=== PATIENT | male | born 1970 | race Caucasian/White ===

== ENCOUNTER 2021-07-17 13:42 | Emergency (ER) | payer MEDICAID, SELFPAY ==
[2021-07-17] VITALS (7 sets, daily range): BP systolic 109–124; BP diastolic 76–84; PULSE 60–69; RESP 15–17; TEMP 36.6–36.7; O2SAT 96–99; BMI 23.6
--- NOTE | 2021-07-17 13:43 | HMH.EDGENADL ---
ED Disposition Clinical Impression: Sciatica Disposition: Home, Self-Care Condition on Discharge: Fair Instructions: Sciatica (Alternative Therapy), Sciatica - Critical Care Critical Care Time: No Attestation: On , the high probability of a clinically significant, sudden or life threatening deterioration of the following system(s) required my full and direct attention, intervention and personal management. The time I documented below is in addition to time spent performing reported procedures but includes the following listed in this critical care notation. Medical Decision Making - Medical Records Medical records reviewed: Yes: I reviewed the patient's medical records. - Mansoor Inquiry Pt receiving controlled substance: No Vital Signs: 07/17/21 13:38 07/17/21 15:03 07/17/21 15:30 Temperature 97.8 F Temperature Source Oral Pulse Rate 61 62 Pulse Rate [Right Radial] 69 Respiratory Rate 15 Blood Pressure 109/76 L 119/84 Blood Pressure [Right Arm] 124/76 Blood Pressure Mean 86 95 Blood Pressure Mean [Right Arm] 92 Blood Pressure Source [Right Arm] Automatic Cuff Blood Pressure Position [Right Arm] Sitting 02 Sat by Pulse Oximetry 96 97 98 Oxygen Delivery Method Room Air Room Air 07/17/21 16:00 Temperature Temperature Source Pulse Rate Pulse Rate [Right Radial] Respiratory Rate Blood Pressure 112/79 Blood Pressure [Right Arm] Blood Pressure Mean 87 Blood Pressure Mean [Right Arm] Blood Pressure Source [Right Arm] Blood Pressure Position [Right Arm] 02 Sat by Pulse Oximetry 99 Oxygen Delivery Method Orders (Tests/Meds): ED MEDICATIONS Discontinued Medications Generic Name Dose Route Start Last Admin Trade Name Freq PRN Reason Stop Dose Admin Hydrocodone Bitart/Acetaminophen 1 tab 07/17/21 13:42 07/17/21 14:49 Hydrocodone/Apap 5/325 Mg Tablet PO 07/17/21 13:43 1 tab ONCE ONE Administration Ketorolac Tromethamine 15 mg 07/17/21 13:42 07/17/21 14:49 Ketorolac 30mg/Ml Vial IM 07/17/21 13:43 15 mg ONCE ONE Administration Medical Decision Narrative: Patient is a 50-year-old male presenting to the emergency department chief complaint right hip pain. Patient does have a distant history of a fall, and does note that he has had some pain in his hip since then. Differential diagnosis for this patient includes fracture, sciatica, muscular spasm, among others. Patient denies any additional symptoms, has no concerning neurologic symptoms. Will order pelvic x-ray as well as right hip x-ray, give patient pain medication, and reassess. The patient imaging, patient had no signs of fracture or or additional acute injury. Will give patient Solu-Medrol, and discharged with instruction for stretching, follow-up with PCP. General Adult HPI - General Stated complaint: Fall Time Seen by Provider: 07/17/21 13:43 Source of Information: Patient - History of Present Illness HPI narrative: Patient is a 50-year-old male presenting to the emergency department from [facility] via EMS for chief complaint of right hip pain. Patient states that he had a fall approximately a month ago and believes that this is the reason that he has this hip pain. He states that he has been walking on it however it is uncomfortable to do so, and he feels more comfortable when he is slightly bent over. He states that this fall was ground-level, denies any additional trauma, hitting his head, lower back pain. He has no numbness or tingling, no unilateral weakness. He feels like the pain starts at his right upper buttock, and goes down his right leg. Patient also states that he is worried that he has infection, however denies any rash, denies any dysuria, redness, flank pain, fever, open wounds, and reports that he feels like his muscle is shaking sometimes. - Related Data Allergies Allergy/AdvReac Type Severity Reaction Status Date / Time No Known Allergies Allergy Ve
--- NOTE | 2021-07-17 13:46 | XR_ITS ---
PROCEDURE INFORMATION: Exam: XR Right Hip Exam date and time: 07/17/2021 1:45 PM Age: 50 years old Clinical indication: Hip pain; Right hip TECHNIQUE: Imaging protocol: XR Right hip. Views: 2 or 3 views hip with pelvis when performed. COMPARISON: No relevant prior studies available. FINDINGS: Bones/joints: Bone island right femoral head. No evidence of acute osseous injury. Soft tissues: Unremarkable. IMPRESSION: No evidence of acute osseous injury.
--- NOTE | 2021-07-17 13:51 | PC.NURSE ---
pt to radiology with oil field technician by wheelchair
--- NOTE | 2021-07-17 15:10 | PC.NURSE ---
pt has no needs at this time; he refused a blanket. He reports he is doing okay. Hooked back up to monitor.
== END 2021-07-17 17:53 | disposition home or self-care (01) ==
PROVIDERS: Emergency Provider Emergency Medicine; PCP Emergency Medicine
DX: M54.31 Sciatica, right side (principal); M25.551 Pain in right hip
CPT/HCPCS: 73502; 96372; 96374; 99283

== ENCOUNTER 2021-12-17 07:45 | Day surgery (SDC) | payer MEDICAID, SELFPAY ==
[2021-12-17] VITALS (8 sets, daily range): BP systolic 104–131; BP diastolic 55–84; PULSE 54–71; RESP 16–18; TEMP 36.2–36.5; O2SAT 98–100; BMI 22.8
== END 2021-12-17 09:32 | disposition home or self-care (01) ==
PROVIDERS: PCP Emergency Medicine; Visit Provider Ophthalmology
PROC: (CPT 66982; principal; 2021-12-17 09:00)
DX: H25.813 Combined forms of age-related cataract, bilateral (principal)
CPT/HCPCS: 66982; V2632

== ENCOUNTER 2021-12-31 07:29 | Day surgery (SDC) | payer MEDICAID, SELFPAY ==
[2021-12-31] VITALS (8 sets, daily range): BP systolic 94–122; BP diastolic 62–80; PULSE 57–74; RESP 16–18; TEMP 36.2–36.5; O2SAT 98–100; BMI 22.8
== END 2021-12-31 09:56 | disposition home or self-care (01) ==
LOC: OR 07:31
PROVIDERS: PCP Emergency Medicine; Visit Provider Ophthalmology
PROC: (CPT 66984; principal; 2021-12-31 09:00)
DX: H25.813 Combined forms of age-related cataract, bilateral (principal); Z72.0 Tobacco use; Z79.899 Other long term (current) drug therapy
CPT/HCPCS: 66984; V2632

== ENCOUNTER 2024-01-30 17:27 | Emergency (ER) | payer MEDICAID, SELFPAY ==
[2024-01-30] VITALS (7 sets, daily range): BP systolic 102–121; BP diastolic 61–79; PULSE 77–98; RESP 16; TEMP 36.9–37.3; O2SAT 91–96; BMI 28.2
--- NOTE | 2024-01-30 17:40 | XR_ITS ---
PROCEDURE INFORMATION: Exam: XR Pelvis Exam date and time: 01/30/2024 6:22 PM Age: 53 years old Clinical indication: Injury or trauma; Fall; Blunt trauma (contusions or hematomas); Bilateral; Pelvic region; Additional info: Fall, AMS TECHNIQUE: Imaging protocol: Radiologic exam of the pelvis. Views: 1 or 2 view. COMPARISON: CR XR HIP RT 2-3V W/PELVIS 07/17/2021 1:45 PM FINDINGS: Bones/joints: No visible fracture or dislocation. Soft tissues: Unremarkable. IMPRESSION: No visible fracture or dislocation.
--- NOTE | 2024-01-30 17:40 | XR_ITS ---
PROCEDURE INFORMATION: Exam: XR Chest Exam date and time: 01/30/2024 6:22 PM Age: 53 years old Clinical indication: Injury or trauma; Fall; Blunt trauma (contusions or hematomas); Additional info: Fall, AMS TECHNIQUE: Imaging protocol: Radiologic exam of the chest. Views: 1 view. COMPARISON: No relevant prior studies available. FINDINGS: Lungs: No evidence of pneumonia or interstitial edema. Pleural spaces: Unremarkable. No pleural effusion. No pneumothorax. Heart/Mediastinum: Unremarkable. No cardiomegaly. Bones/joints: No visible acute fracture. IMPRESSION: 1. No evidence of pneumonia or interstitial edema. 2. No visible acute fracture.
--- NOTE | 2024-01-30 17:40 | CT_ITS ---
PROCEDURE INFORMATION: Exam: CT Head Without Contrast Exam date and time: 01/30/2024 6:25 PM Age: 53 years old Clinical indication: Injury or trauma; Fall; Blunt trauma (contusions or hematomas); Additional info: Fall, AMS TECHNIQUE: Imaging protocol: Computed tomography of the head without contrast. Total images: 288 Radiation optimization: All CT scans at this facility use at least one of these dose optimization techniques: automated exposure control; mA and/or kV adjustment per patient size (includes targeted exams where dose is matched to clinical indication); or iterative reconstruction. COMPARISON: CT CERVICAL SPINE WO CON 01/30/2024 6:25 PM FINDINGS: Brain: Normal. No hemorrhage. Unremarkable white matter. No mass effect. The zaragoza-white interface is maintained. Cerebral ventricles: No ventriculomegaly. Paranasal sinuses: Mild mucosal thickening right maxillary sinus with trace air-fluid level. Mastoid air cells: Visualized mastoid air cells are well aerated. Orbital cavities: Status post bilateral orbital lens replacement. Bones: Unremarkable. No acute fracture. Soft tissues: Unremarkable. IMPRESSION: 1. No acute intracranial process. 2. Acute right maxillary sinusitis.
--- NOTE | 2024-01-30 17:40 | CT_ITS ---
PROCEDURE INFORMATION: Exam: CT Cervical Spine Without Contrast Exam date and time: 01/30/2024 6:25 PM Age: 53 years old Clinical indication: Injury or trauma; Fall; Blunt trauma TECHNIQUE: Imaging protocol: Computed tomography of the cervical spine without contrast. Total images: 366 Radiation optimization: All CT scans at this facility use at least one of these dose optimization techniques: automated exposure control; mA and/or kV adjustment per patient size (includes targeted exams where dose is matched to clinical indication); or iterative reconstruction. COMPARISON: CT HEAD/BRAIN WO CON 01/30/2024 6:25 PM FINDINGS: Bones: Straightened lordosis with mild broad-based dextrocurvature. Vertebral body height and alignment is maintained. The base of the dens and the C1 and C2 articulations are preserved with mild degenerative arthropathy. The cervicooccipital junction is intact. The facet joints are appropriately aligned. Mild multilevel degenerative disc disease greatest at C5-C6. Small posterior projecting disc osteophyte complex at C5-C6 flattens anterior thecal sac. No critical spinal canal stenosis or neural foraminal encroachment. No concerning bone lesions. Paranasal sinuses: Mucosal thickening and air-fluid level right maxillary sinus. Prevertebral and retropharyngeal spaces: No prevertebral soft tissue swelling. Lungs: Lung apices are clear. Thyroid: Subcentimeter right thyroid nodule requiring no strict follow-up. Soft tissues: Unremarkable soft tissues of the neck. Other findings: Unremarkable posterior elements. IMPRESSION: 1. No acute cervical fracture or traumatic subluxation. 2. Straightened lordosis with mild dextrocurvature from position or muscle spasm. 3. Mild degenerative disc disease greatest at C5-C6. COMMENTS: Consistent with the [employer]'s Incidental Findings Committee white paper (J Am Vinayak Radiol 2015): In patients aged 35 years and older with an incidental thyroid nodule equal to or greater than 1.[address], MRI or extrathyroidal US, further evaluation with dedicated thyroid US is recommended for patients with normal life expectancy and without comorbidities. For smaller nodules without suspicious features, no further evaluation or follow up is recommended.
--- NOTE | 2024-01-30 17:55 | HMH.EDGENADL ---
Discharge Plan Disposition Patient Disposition: Home, Self-Care Prescriptions Prescriptions: No Action haloperidol 5 mg tablet 5 mg PO DAILY prednisone 20 mg tablet 20 mg PO DAILY metoprolol succinate 100 mg tablet extended release 24 hr 100 mg PO DAILY acetaminophen 500 mg tablet 500 mg PO DAILY lisinopril 5 mg tablet 5 mg PO DAILY olanzapine 20 mg tablet 20 mg PO DAILY omega-3 acid ethyl esters 1 gram capsule 1 cap PO DAILY Tab-A-Jeni Multivitamin w-iron 18-400 mg-mcg tablet 1 tab PO DAILY Referrals Follow up/Referrals: Provider,Referral, MD [Primary Care Provider] - See instructions Clinical Impressions Clinical Impression: Fall, Minor head injury, Alcohol intoxication Print Language Print Language: Georgian Discharge ED Provider: Mireille Singleton General Adult HPI <Bia Cantor (ED), [employer] - Last Filed: 01/30/24 20:38> General Chief complaint: Fall Stated complaint: fall Time Seen by Provider: 01/30/24 17:30 Mode of Arrival: EMS Source of Information: EMS Limitations: No Limitations Description of Symptoms (Recalled from ER Triage Doc. by RN): EMS reports they were called by law enforcement. the pt took multiple falls on a sidewalk prior to their arrival. pt is oriented to self. pt is a poor historian. pt smells strongly of alcohol but denies drinking. History of Present Illness HPI narrative: This is a 53-year-old male who presents to the ED today via EMS after falling on the sidewalk prior to arrival. Please called EMS to pick patient up after police finding patient on the sidewalk. Patient is intoxicated. He is able to tell me who he is and his birthday. Otherwise he is unable to let me know what year or where he is. Related Data Home Medications ?Medication ?Instructions ?Recorded ?Confirmed acetaminophen 500 mg tablet 500 mg PO DAILY Pain 12/17/21 12/31/21 haloperidol 5 mg tablet 5 mg PO DAILY mood 12/17/21 12/31/21 lisinopril 5 mg tablet 5 mg PO DAILY bp 12/17/21 12/31/21 metoprolol succinate 100 mg 100 mg PO DAILY bp 12/17/21 12/31/21 tablet,extended release 24 hr multivitamin-ferrous 1 tab PO DAILY Supplement 12/17/21 12/31/21 fumarate-folic acid 18 mg-400 mcg tablet (Tab-A-Jeni Multivitamin w-iron) olanzapine 20 mg tablet 20 mg PO DAILY bipolar 12/17/21 12/31/21 omega-3 acid ethyl esters 1 gram 1 cap PO DAILY Supplement 12/17/21 12/31/21 capsule prednisone 20 mg tablet 20 mg PO DAILY steroid 12/17/21 12/31/21 Allergies Allergy/AdvReac Type Severity Reaction Status Date / Time No Known Allergies Allergy Verified 07/17/21 14:09 [facility] <Bia Cantor (ED), [employer] - Last Filed: 01/30/24 20:38> PFS Disclaimer: The information contained in this section may have been updated after the patient was seen, as this information can be updated by other users. Medical History (Updated 01/30/24 @ 22:48 by Mireille Singleton MD) History of depression History of anxiety History of chronic hypertension Surgical History Hx of cataract surgery Family History Other No significant family history Social History Smoking Status: Current every day smoker alcohol intake: never current occupational status: disabled Travel in the last 8 weeks: None caffeine: Yes Other Medical History Have you received the Flu Vaccine for this season: Yes Have you received the Pneumonia Vaccine: No <Bia Cantor (ED), [employer] - Last Filed: 01/30/24 20:38> ROS Obtained: Yes Systems reviewed as appropriate & no additional complaints except as documented Constitutional Constitutional: Reports as per HPI Physical Exam <Bia Cantor (ED), [employer] - Last Filed: 01/30/24 20:38> General General appearance: appears intoxicated Head Head exam: normocephalic Eye Eye exam: Present PERRL and EOMI ENT ENT exam: Present normal oropharynx and mucous membranes moist Neck Neck exam: Present full ROM and trachea midline Respiratory Respiratory exam: Present other (Rhonchi in the right upper lobe anteriorly) Cardiovascular Cardiovascular exam: Present regular rate, normal rhythm, normal heart sounds, +S1 and +S2 Abdominal Exam Abdominal exam: Present soft and normal bowel sounds Extremities Exam Extremities exam: Present normal capillary refill Neurological Exam Neurological exam: Present other (Alert only to person) Skin Skin exam: Present warm and dry Medical Decision Making <Bia Cantor (ED), [employer] - Last Filed: 01/30/24 20:38> Medical Records Screening: Per USPSTF and CDC recommendations, given the prevalence of disease in our region, it is our hospital?s policy to screen for HIV and viral Hepatitis for all patients aged 18 and over and those with ongoing risk factors. Mansoor Inquiry Pt receiving controlled substance: No Vital Signs: 01/30/24 17:28 01/30/24 17:30 01/30/24 18:00 Temperature 98.4 F Temperature Source Oral Pulse Rate 87 78 Pulse Rate [Left] 90 Respiratory Rate 16 Blood Pressure 108/70 L 102/61 L Blood Pressure [Right Arm] 105/69 L Blood Pressure Mean [Right Arm] 81 Blood Pressure Source [Right Arm] Automatic Cuff Blood Pressure Position [Right Arm] Sitting 02 Sat by Pulse Oximetry 95 91 L 93 L Oxygen Delivery Method Room Air Room Air Room Air 01/30/24 19:00 01/30/24 19:30 01/30/24 20:00 Temperature Temperature Source Pulse Rate 77 81 94 H Pulse Rate [Left] Respiratory Rate Blood Pressure 113/77 121/77 112/78 Blood Pressure [Right Arm] Blood Pressure Mean [Right Arm] Blood Pressure Source [Right Arm] Blood Pressure Position [Right Arm] 02 Sat by Pulse Oximetry 96 95 94 L Oxygen Delivery Method Orders (Tests/Meds): ORDERS Category Date Time Status CT cervical spine wo con Stat Cat Scan 01/30/24 17:[address] head/brain wo con Stat Cat Scan 01/30/24 17:40 Completed Pelvis XR 1-2 views [XR pelvis 1-2V] Stat Exams 01/30/24 17:40 Completed XR chest portable Stat Exams 01/30/24 17:40 Completed <Mireille Singleton MD - Last Filed: 01/30/24 22:49> Vital Signs: 01/30/24 17:28 01/30/24 17:30 01/30/24 18:00 Temperature 98.4 F Temperature Source Oral Pulse Rate 87 78 Pulse Rate [Left] 90 Respiratory Rate 16 Blood Pressure 108/70 L 102/61 L Blood Pressure [Right Arm] 105/69 L Blood Pressure Mean [Right Arm] 81 Blood Pressure Source [Right Arm] Automatic Cuff Blood Pressure Position [Right Arm] Sitting 02 Sat by Pulse Oximetry 95 91 L 93 L Oxygen Delivery Method Room Air Room Air Room Air 01/30/24 19:00 01/30/24 19:30 01/30/24 20:00 Temperature Temperature Source Pulse Rate 77 81 94 H Pulse Rate [Left] Respiratory Rate Blood Pressure 113/77 121/77 112/78 Blood Pressure [Right Arm] Blood Pressure Mean [Right Arm] Blood Pressure Source [Right Arm] Blood Pressure Position [Right Arm] 02 Sat by Pulse Oximetry 96 95 94 L Oxygen Delivery Method Orders (Tests/Meds): ORDERS Category Date Time Status CT cervical spine wo con Stat Cat Scan 01/30/24 17:[address] head/brain wo con Stat Cat Scan 01/30/24 17:40 Completed Pelvis XR 1-2 views [XR pelvis 1-2V] Stat Exams 01/30/24 17:40 Completed XR chest portable Stat Exams 01/30/24 17:40 Completed Medical Decision Narrative: This is Dr. Singleton I took over from Bia Cantor who is primarily caring for the patient initially. I did evaluate the patient upon first presentation he was intoxicated had a minor head injury had a trauma workup including a chest and pelvis x-ray which I personally interpreted which show no acute fracture dislocation also had a CT scan of his head and his cervical spine which I personally interpreted also reviewed radiology images and there is no acute abnormalities there. He was observed for many hours until he was awake and at his baseline we discussed the case with the home where he lives and he is at his baseline and he was discharged in improved and stable condition with no other complaints. Critical Care <Bia Cantor (ED), [employer] - Last Filed: 01/30/24 20:38> Critical Care Time Critical Care Time: No
--- NOTE | 2024-01-30 20:12 | PC.NURSE ---
rounded on pt at this time. pt given urinal
== END 2024-01-30 22:58 | disposition home or self-care (01) ==
PROVIDERS: Emergency Provider Student in an Organized Health Care Education/Training Program
DX: F10.929 Alcohol use, unspecified with intoxication, unspecified (principal); S09.90XA Unspecified injury of head, initial encounter; W18.30XA Fall on same level, unspecified, initial encounter; Y93.89 Activity, other specified; Y92.89 Other specified places as the place of occurrence of the external cause
CPT/HCPCS: 70450; 71045; 72125; 72170; 99284